=== PATIENT | female | born 1935 | race Caucasian/White ===

== ENCOUNTER 2017-10-08 15:48 | Outpatient (CLI) | payer OTHER ==
[~2017-10-08 15:48] MED LIST: ACID REDUCER20 MG PO; AMOX1TAB12 PO; ARICEPT10 MG; ARICEPT10 MG PO; DITROPAN5 MG PO; HYZAAR; HYZAAR 100-12.1 EACH PO; NEURONTIN300 MG PO; NIFEDIPINE ER30 MG PO; PREDNISONE10 MG PO; PROBIOTIC & AC1 EACH PO; SIMVASTATIN; SIMVASTATIN40 MG PO; SYNTHROID50 MCG; SYNTHROID50 MCG PO; TOPROL XL50 M1 PO; TRAZODONE HCL50 MG PO; TROPOL; [UNRECOGNIZED DRUG - OTHER]
== END 2017-10-08 15:50 | disposition home or self-care (01) ==
LOC: MRI 15:48
DX: D35.2 Benign neoplasm of pituitary gland (principal); G40.309 Generalized idiopathic epilepsy and epileptic syndromes, not intractable, without status epilepticus
CPT/HCPCS: 70553; A9579

== ENCOUNTER → 2017-11-17 | Emergency (ER) | payer OTHER ==
[~2017-11-17] VITALS: Ht 165.1 cm; Wt 76.7 kg
[~2017-11-17] MED LIST changes: +ULTRACET PO
== END | disposition home or self-care (01) ==
LOC: ER 11:03
DX: S20.211A Contusion of right front wall of thorax, initial encounter (principal); W18.39XA Other fall on same level, initial encounter; Y93.89 Activity, other specified; Y92.018 Other place in single-family (private) house as the place of occurrence of the external cause; Y99.8 Other external cause status

== ENCOUNTER 2017-12-02 08:44 | Outpatient (CLI) | payer OTHER | END 2017-12-02 08:54 | disposition home or self-care (01) | LOC: TOM 08:44 | DX: K52.9 Noninfective gastroenteritis and colitis, unspecified (principal) ==

== ENCOUNTER 2018-01-12 10:53 | Outpatient (CLI) | payer OTHER | END 2018-01-12 11:30 | disposition home or self-care (01) | LOC: NUCLEAR 10:53 | DX: I10 Essential (primary) hypertension (principal) ==

== ENCOUNTER 2018-02-23 11:41 | Emergency (ER) | payer OTHER ==
[~2018-02-23] VITALS: Ht 175.3 cm; Wt 81.2 kg
== END 2018-02-23 23:17 | disposition home or self-care (01) ==
LOC: ER 11:41
DX: E87.6 Hypokalemia (principal); E86.0 Dehydration; K52.89 Other specified noninfective gastroenteritis and colitis

== ENCOUNTER → 2018-03-15 | Emergency (ER) | payer OTHER ==
[~2018-03-15] VITALS: Ht 165.1 cm; Wt 78.0 kg
[~2018-03-15] MED LIST changes: +DUI500 PO; +NABUMETONE750 MG PO
== END | disposition home or self-care (01) ==
LOC: ER 20:49
DX: S00.31XA Abrasion of nose, initial encounter (principal); S00.83XA Contusion of other part of head, initial encounter; R55 Syncope and collapse; W01.0XXA Fall on same level from slipping, tripping and stumbling without subsequent striking against object, initial encounter; Y93.E8 Activity, other personal hygiene; Y92.012 Bathroom of single-family (private) house as the place of occurrence of the external cause; Y99.8 Other external cause status